=== PATIENT | male | born 2005 | race Caucasian/White ===

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

== ENCOUNTER 2023-12-13 22:40 | Emergency (ER) | payer OTHER ==
[2023-12-13 22:47] VITALS: BP 119/65; PULSE 83; RESP 18; TEMP 98.9; BMI 29.5
[2023-12-14] MEDS ORDERED: IBUPROFEN 600 MG TABLET (FP) PO ONE (00:20)
[2023-12-14] MEDS: IBUPROFEN 600 MG TABLET (FP) PO ONE (00:27)
== END 2023-12-14 02:25 | disposition home or self-care (01) ==
LOC: JER 22:40
DX: G56.32 Lesion of radial nerve, left upper limb (principal); R20.0 Anesthesia of skin; M79.602 Pain in left arm
CPT/HCPCS: 93005; 93010; 99283-25

== ENCOUNTER 2023-12-18 10:34 | Emergency (ER) | payer OTHER ==
[2023-12-18 10:48] VITALS: BP 138/72; PULSE 69; RESP 18; TEMP 98.3; BMI 29.8
[2023-12-18] MEDS ORDERED: LIDOCAINE 4% PATCH TP ONE (11:22)
[2023-12-18] MEDS ORDERED: KETOROLAC TROMETHAMINE 30 MG/1 ML VIAL ONE (11:22)
[2023-12-18] MEDS ORDERED: predniSONE 20 MG TABLET (UD) ONE (11:22)
[2023-12-18] MEDS: predniSONE 20 MG TABLET (UD) PO ONE (11:29)
[2023-12-18] MEDS: LIDOCAINE 4% PATCH TP ONE (11:29)
[2023-12-18] MEDS: KETOROLAC TROMETHAMINE 30 MG/1 ML VIAL IM ONE (11:29)
[2023-12-18] MEDS ORDERED: LIDOCAINE PATCH REMOVAL MC ONE (22:00)
== END 2023-12-18 12:49 | disposition home or self-care (01) ==
LOC: JER 10:34
PROC: 3E0233Z Introduction of Anti-inflammatory into Muscle, Percutaneous Approach (ICD-10-PCS; principal; 2023-12-18)
DX: R07.9 Chest pain, unspecified (principal); M54.2 Cervicalgia; M25.512 Pain in left shoulder; M79.602 Pain in left arm; G56.82 Other specified mononeuropathies of left upper limb
CPT/HCPCS: 71046-TC-FY; 93005; 93010; 99284-25